=== PATIENT | female | born 1960 | race Caucasian/White ===

== ENCOUNTER 2023-07-20 13:27 | Emergency (ER) | payer BC ==
[~2023-07-20] VITALS: Ht 180.3 cm; Wt 93.0 kg
[2023-07-20] MEDS ORDERED: NORVASC5 MG PO (13:59)
[2023-07-20] MEDS ORDERED: HYDROCHLOROTHIA25 MG PO (14:00)
[2023-07-20] MEDS ORDERED: ZESTRIL5 MG PO (14:00)
[2023-07-20] MEDS ORDERED: PANTOPRAZOLE SO40 M2 PO (14:01)
[2023-07-20] MEDS ORDERED: CRESTOR40 MG PO (14:02)
[2023-07-20] MEDS ORDERED: METFORMIN HCL1000 MG PO (14:02)
[2023-07-20] MEDS ORDERED: VALACYCLOVIR1000 MG PO (14:03)
[2023-07-20] MEDS ORDERED: TOUJEO MAX300 UNIT/1 SUB-Q (14:04)
[2023-07-20] MEDS ORDERED: ZOLPIDEM TART1.75 MG PO (14:04)
[2023-07-20] MEDS ORDERED: OZEMPIC0.25 MG/02 (14:05)
[2023-07-20] MEDS ORDERED: METAXALONE800 MG (14:06)
[2023-07-20] MEDS ORDERED: ONDANSETRON ODT8 MG (14:06)
[2023-07-20] MEDS ORDERED: NEURONTIN300 MG (14:07)
[2023-07-20] MEDS ORDERED: MELOXICAM5 MG (14:07)
[2023-07-20] MEDS ORDERED: FAMOTIDINE40 MG PO (14:07)
[2023-07-20] MEDS ORDERED: IMITREX100 MG (14:11)
[2023-07-20] MEDS ORDERED: DOXYCYCLINE HY100 MG PO (14:17)
[2023-07-20] MEDS ORDERED: VENTOLIN HFA18 GM INH (14:17)
[2023-07-20 14:49] VITALS: BP 161/71
== END 2023-07-20 14:37 | disposition home or self-care (01) ==
LOC: ED 13:27
DX: T81.31XA Disruption of external operation (surgical) wound, not elsewhere classified, initial encounter (principal); J06.9 Acute upper respiratory infection, unspecified; E11.9 Type 2 diabetes mellitus without complications; E78.00 Pure hypercholesterolemia, unspecified; I10 Essential (primary) hypertension; Z96.82 Presence of neurostimulator; Z79.899 Other long term (current) drug therapy; Z79.84 Long term (current) use of oral hypoglycemic drugs; Z79.4 Long term (current) use of insulin; Z79.85 Long-term (current) use of injectable non-insulin antidiabetic drugs
CPT/HCPCS: 99283